=== PATIENT | male | born 1970 | race Asian ===

== ENCOUNTER → 2021-09-30 | Outpatient (CLI) | payer OTHER ==
--- NOTE | 2021-09-30 12:56 | KCIC ---
EXAMINATION: Magnetic resonance imaging (MRI) of the cervical spine without contrast 09/30/2021 11:10 AM HISTORY: Cervical radiculopathy. Bilateral upper extremity numbness and pain TECHNIQUE: Multiplanar multi-weighted MRI of the cervical spine was performed without intravenous con trast using the standard cervical spine protocol. Contrast information: None administered COMPARISON: None available. FINDINGS: Evaluation degraded by motion artifact. The alignment of the cervical spine is normal. Vertebral bodies demonstrate normal signal intensity o n all sequences. No acute fracture is identified; however, if trauma is suspected, a CT scan would b e a more sensitive examination for fractures. The craniocervical junction is normal. The visualized portions of the skull base and the posterior fossa are normal. The spinal cord demonstrates normal signal intensity on all sequences. No significant disc height loss. Mild disc desiccation from C3-C4 through C6-7. No soft tissue abnormality is identified. Normal signal voids are present in the vert ebral arteries. C2-C3: The disk is normal in configuration. There is no facet arthropathy. There is no uncovertebral joint disease. There is no neuroforaminal stenosis. There is no spinal canal stenosis. C3-C4: The disk is normal in configuration. There is no facet arthropathy. There is no uncovertebral joint disease. There is no neuroforaminal stenosis. There is no spinal canal stenosis. C4-C5: Mild disc bulge. There is no facet arthropathy. There is no uncovertebral joint disease. Ther e is no neuroforaminal stenosis. There is no spinal canal stenosis. C5-C6: Mild disc bulge. There is no facet arthropathy. There is no uncovertebral joint disease. Ther e is no neuroforaminal stenosis. There is no spinal canal stenosis. C6-C7: Mild disc bulge. There is no facet arthropathy. There is mild uncovertebral joint disease. Th ere is mild neuroforaminal stenosis. There is no spinal canal stenosis. C7-T1: The disk is normal in configuration. There is no facet arthropathy. There is no uncovertebral joint disease. There is no neuroforaminal stenosis. There is no spinal canal stenosis. IMPRESSION: Mild degenerative changes of the cervical spine as described in detail above. Electronically signed by: Emi Brown MD (09/30/2021 12:54 PM) [id number]
== END ==
LOC: KCIC MRI 10:29
PROVIDERS: ATTEND Orthopaedic Surgery
DX: M47.22 Other spondylosis with radiculopathy, cervical region (principal); M50.221 Other cervical disc displacement at C4-C5 level; M48.02 Spinal stenosis, cervical region
CPT/HCPCS: 72141